=== PATIENT | female | born 1950 | race Caucasian/White ===

== ENCOUNTER 2017-01-10 14:13 | Outpatient (CLI) | payer BC, MEDICARE ==
[2017-01-10 14:47] LABS: #Basophils 0.1 thou/uL (0.0-0.2); #Eosinphils 0.2 thou/uL (0.0-0.7); #Monocytes 1.6 thou/uL (0.11-0.59); #Neutrophils 9.2 thou/uL (1.40-6.50); %Basophils 0.6 % (0.0-1.0); %Eosinophils 1.3 % (0.0-10.0); %Monocytes 12.5 % (0.0-10.0); Hematocrit 37.9 % (36.0-47.0); Mean Platelet Volume 6.3 fL (7.4-10.4); Red Blood Cell (RBC) Count 3.93 mill/uL (4.20-5.40); White Blood Cell (WBC) Count 13.1 thou/uL (4.8-10.8)
[2017-01-10 14:58] LABS: Anion Gap 9 mmol/L (10-20); BUN (Urea Nitrogen) 12 mg/dL (9.8-20.1); Calc. Creatinine Clearance 0 mL/min (70-130); Calcium 9.6 mg/dL (7.8-10.44); Carbon Dioxide 31 mmol/L (23-31); Chloride 106 mmol/L (98-107); Estimated GFR-MDRD 76
[2017-01-10 20:52] LABS: Bilirubin Negative (Negative); Blood, Urine Trace (Negative); Glucose, Urine (Dipstick) Negative (Negative); Ketone, Urine Negative (Negative); Nitrite Negative (Negative); Protein, Urine (Dipstick) Negative (Neg-Trace); Urobilinogen 0.2 mg/dL (0.2-1.0)
[2017-01-10 21:58] LABS: Bacteria/HPF None Seen HPF (None Seen); RBC/HPF 0-3 HPF (0-3); Squamous Epithelial None Seen HPF (0-3); WBC/HPF None Seen HPF (0-3)
== END 2017-01-10 14:14 | disposition home or self-care (01) ==
LOC: HPCALD 14:13
PROVIDERS: ATTEND Family Medicine
DX: R10.12 Left upper quadrant pain (principal)
CPT/HCPCS: 36415; 80048; 81001; 85025; 87086

== ENCOUNTER 2017-01-11 08:32 | Outpatient (CLI) | payer MEDICARE ==
--- NOTE | 2017-01-11 20:39 | CT ---
CT OF THE ABDOMEN AND PELVIS WITH CONTRAST 01/11/[address] of the abdomen and pelvis was obtained for evaluation of left upper quadrant pain. Axial s lices were acquired, then coronal reconstructions were done. Comparison is made with a prior study dated 01/21/15. Spiral CT of the abdomen and pelvis was done using both oral and IV contrast for evaluation of left upper quadrant pain. There is a prior history of diverticulitis. Comparison is made with the 01/21/15 CT scan. There is an area of significant inflammation around the mid to lower descending colon, approximately around the L3-L4 level. Some fluid is seen around the colon here. I see no free air. Diverticula ar e definitely in the vicinity. There is some swelling of the lumen. The findings are consistent with acute diverticulitis with significant inflammatory change. A drainable abscess is not seen at the mo ment. The lung bases are clear. The liver has numerous cysts within it which appears similar in size and s hape to the 2015 scan. The spleen, pancreas, gallbladder, kidneys, and aorta all appear normal. The left adrenal gland is a little more hypertrophied than the right but it has not really changed much since the prior scan. There is no sign of bowel obstruction at the moment. No distended bowel is present. In spite of the swelling in the left colon, contrast made its way al the way to the rectum. I see no free air. CT of the pelvis shows no pelvic masses, pelvic fluid collections, or adenopathy. IMPRESSION: 1. Findings consistent with acute diverticulitis of the mid to lower descending colon. As there is significant inflammatory change and a little bit of fluid around the colon here, the patient araceli l need to be watched carefully. 2. Multiple hepatic cysts, unchanged. 3. No mentioned above but present, is some thickening of the fundus of the stomach. This may ju st be because it is collapsed, rather than truly thick. It might bear a second look after the patien t's diverticulitis is treated if she remains symptomatic. Findings discussed with Dr. Willis at 1915 on 01/11/17. POS: HOME
== END 2017-01-11 08:33 | disposition home or self-care (01) ==
LOC: BURCT 08:32
PROVIDERS: ATTEND Family Medicine
DX: R10.12 Left upper quadrant pain (principal)
CPT/HCPCS: 74177

== ENCOUNTER 2017-12-04 10:30 | Outpatient (CLI) | payer MEDICARE ==
--- NOTE | 2017-12-04 19:55 | RAD ---
RIGHT KNEE FOUR VIEWS: Date: 12-04-17 FINDINGS: No fracture or joint effusion was seen. There may be some minor medial joint space narrowing and very tiny osteophytes beginning to form, but they are not large. Tiny osteophytes are also seen in the pa tellofemoral joints. IMPRESSION: Minor degenerative changes. POS: HOME
== END 2017-12-04 10:31 | disposition home or self-care (01) ==
LOC: BURRAD 10:30
PROVIDERS: ATTEND Family Medicine
DX: M25.561 Pain in right knee (principal); M17.11 Unilateral primary osteoarthritis, right knee

== ENCOUNTER 2018-01-26 15:24 | Emergency (ER) | payer MEDICARE ==
[2018-01-26] MEDS ORDERED: Adacel (T-DAP) 0.5 ML VIAL ONE (15:36)
[2018-01-26] MEDS ORDERED: Bacitracin Zinc 1 Packet ONE (16:19)
== END 2018-01-26 16:26 | disposition home or self-care (01) ==
LOC: BURERS 15:24
DX: S81.812A Laceration without foreign body, left lower leg, initial encounter (principal); W26.8XXA Contact with other sharp object(s), not elsewhere classified, initial encounter
CPT/HCPCS: 12002; 90715

== ENCOUNTER 2018-07-30 09:21 | Outpatient (CLI) | payer MEDICARE ==
--- NOTE | 2018-07-30 20:42 | ULT ---
BILATERAL LOWER EXTREMITY VENOUS ULTRASOUND: 07/30/18 Color duplex doppler ultrasonography of the deep veins of each lower extremity was performed. No echo genic clot was seen. All deep veins were freely compressible from groin to ankle. There were normal d oppler responses to augmentation maneuvers bilaterally. IMPRESSION: No evidence of DVT. POS: HOME
== END 2018-07-30 09:22 | disposition home or self-care (01) ==
LOC: BURULT 09:21
PROVIDERS: ATTEND Family Medicine
DX: R60.0 Localized edema (principal)
CPT/HCPCS: 93970

== ENCOUNTER 2018-08-26 07:45 | Outpatient (CLI) | payer MEDICARE ==
--- NOTE | 2018-08-26 18:41 | CT ---
CT ABDOMEN AND PELVIS WITH CONTRAST: DATE: 08/26/18. FINDINGS: Comparison is made with the prior study of 01/11/2017. That exam showed diverticulitis in the left lo wer quadrant. Axial slices were acquired after giving oral and IV contrast. Coronal and sagittal re constructions were done afterwards. The area of diverticulitis seen previously has resolved in that there is little or no pericolonic str eaking. There is prominent thickening of the wall of the sigmoid colon and many diverticula seen thr oughout the entire colon, particularly the sigmoid region. No definite pericolonic inflammatory puckett ge was seen at any point. No free air or free fluid were seen. The lung bases are clear. Hepatic cysts are again noted as before. None are any larger and they may be slightly smaller. The spleen, pancreas, gallbladder, adrenal glands, kidneys, and abdominal aort a show no acute findings. The small bowel was unremarkable. There is a very small fat-filled umbilical hernia of no real alfonso rn. CT of the pelvis was mainly remarkable for the diverticulosis of the sigmoid region and marked thicke krystyna of its mcgee over a fairly long segment. No free fluid was seen. IMPRESSION: 1. Colonic diverticulosis, most severe in the sigmoid region. There is no definite pericolonic stre aking to suggest diverticulitis; however, the wall of the sigmoid colon is quite thick, so it may be chronically inflamed. 2. Multiple hepatic cysts, no larger than before. POS: HOME
== END 2018-08-26 07:46 | disposition home or self-care (01) ==
LOC: BURCT 07:45
PROVIDERS: ATTEND Family Medicine
DX: R10.32 Left lower quadrant pain (principal); K57.30 Diverticulosis of large intestine without perforation or abscess without bleeding; K76.89 Other specified diseases of liver
CPT/HCPCS: 74177

== ENCOUNTER 2020-05-02 14:22 | Outpatient (CLI) | payer MEDICARE ==
--- NOTE | 2020-05-02 18:33 | RAD ---
RIGHT ANKLE THREE VIEWS: 05/02/20 Considerable soft tissue swelling is seen in the lower leg and around the ankle. No fracture or acute bony change was seen. The ankle joint itself appears normal. Incidentally noted was a calcaneal spur . IMPRESSION: Soft tissue swelling. POS: HOME
--- NOTE | 2020-05-02 18:39 | RAD ---
RIGHT FOOT THREE VIEWS: 05/02/20 Soft tissue swelling is present around the foot, but no acute fracture was identified. The bones and joints all appeared intact. There may have been an old injury to the base of the fifth metatarsal. Ca lcaneal spur was noted. IMPRESSION: Soft tissue swelling. POS: HOME
== END 2020-05-02 14:23 | disposition home or self-care (01) ==
LOC: BURRAD 14:22
PROVIDERS: ATTEND Physician Assistant
DX: M25.571 Pain in right ankle and joints of right foot (principal); M79.671 Pain in right foot; M79.674 Pain in right toe(s); W19.XXXA Unspecified fall, initial encounter; M79.89 Other specified soft tissue disorders

== ENCOUNTER 2020-10-06 11:01 | Outpatient (CLI) | payer MEDICARE ==
--- NOTE | 2020-10-06 19:37 | RAD ---
LUMBAR SPINE THREE VIEWS: 10/06/20 No fracture or dislocation was seen. There is disc space narrowing at L2-L3 with the beginnings of so me osteophytes and a little bit of end plate sclerosis. There is very minor disc space narrowing at L 4-L5 with minor anterolisthesis of L4 on L5. This appears to be on the basis of facet arthritis. No p ars defects were seen. The SI joints are symmetrical. IMPRESSION: 1. No acute traumatic findings. 2. Degenerative disc disease at L2-L3. 3. Facet arthritis particularly prominent around the L4-L5 level. MRI could be useful in further demonstration of any neural impingement. POS: HOME
== END 2020-10-06 11:02 | disposition home or self-care (01) ==
LOC: BURRAD 11:01
PROVIDERS: ATTEND Nurse Practitioner Family
DX: M54.5 Low back pain (principal); M47.816 Spondylosis without myelopathy or radiculopathy, lumbar region; M51.36 Other intervertebral disc degeneration, lumbar region
CPT/HCPCS: 72100